=== PATIENT | male | born 1955 | race Caucasian/White ===

== ENCOUNTER 2022-06-28 11:40 | Outpatient (CLI) | payer MEDICARE, SELFPAY ==
[2022-06-28 22:24] LABS: Albumin* 4.4 g/dL (3.3-5.0)
[2022-06-28 22:25] LABS: Chloride* 104 mmol/L (96-114); Potassium* 4.4 mmol/L (3.6-5.1); Sodium* 137 mmol/L (135-149)
[2022-06-28 22:27] LABS: Carbon Dioxide* 27 mmol/L (20-32); Creatinine* 0.8 mg/dL (0.5-1.5)
[2022-06-28 22:28] LABS: Alanine Aminotransferase* 24 U/L (4-50); Alkaline Phosphatase* 70 U/L (40-150); Aspartate Amino Transferase* 38 U/L (12-35); Bilirubin Total* 0.6 mg/dL (0.1-1.5); Blood Urea Nitrogen* 24 mg/dL (7-30); Calcium* 9.8 mg/dL (8.4-10.6); Cholesterol* 182 mg/dL (90-199); Estimated Glomerular Filt Rate 98 ml/min; Glucose* 88 mg/dL (60-115); Total Protein* 7.1 g/dL (6.0-8.3); Triglycerides* 89 mg/dL (40-149)
[2022-06-28 22:29] LABS: HDL Cholesterol* 52 mg/dL (>=40); LDL Cholesterol Calculated 112 mg/dL (<100)
[2022-06-28 22:48] LABS: PSA Screen* 1.05 ng/mL (0.10-4.00)
== END 2022-06-28 11:41 | disposition home or self-care (01) ==
PROVIDERS: Visit Provider Family Medicine
DX: Z00.00 Encounter for general adult medical examination without abnormal findings (principal); F32.A Depression, unspecified; N40.0 Benign prostatic hyperplasia without lower urinary tract symptoms; Z13.1 Encounter for screening for diabetes mellitus; Z13.6 Encounter for screening for cardiovascular disorders; Z12.5 Encounter for screening for malignant neoplasm of prostate
CPT/HCPCS: 80053; 80061; 84153

== ENCOUNTER 2022-09-09 12:52 | Outpatient (CLI) | payer MEDICARE, SELFPAY | END 2022-09-09 12:53 | disposition home or self-care (01) | LOC: LKVREF 12:52 | PROVIDERS: Visit Provider Physician Assistant Medical | DX: Z01.818 Encounter for other preprocedural examination (principal) | CPT/HCPCS: 87081 ==

== ENCOUNTER 2022-09-13 07:40 | Day surgery (SDC) | payer MEDICARE, SELFPAY ==
[2022-09-13] VITALS (18 sets, daily range): BP systolic 103–128; BP diastolic 67–96; PULSE 46–60; RESP 13–16; TEMP 35.6–36.2; O2SAT 93–98; BMI 29.9
[2022-09-13] MEDS: LACTATED RINGERS 1000 ML 1,000 ML 100 ML IV ×2 (08:25→12:43)
[2022-09-13] MEDS: SODIUM CHLORIDE 0.9 % (FLUSH) 10 ML SYRINGE IVF (08:25)
--- NOTE | 2022-09-13 10:21 | SUR.PREOP ---
TIME?OUT:?1021 PT/RN/MDA?VERIFICATION?OF?SURGICAL?SITE,?PROCEDURE,?AND?CONSENT OBTAINED?PRIOR?TO?INVASIVE?PROCEDURE.
[2022-09-13] MEDS: MIDAZOLAM HCL 1 MG/ML inj IVP (10:24)
[2022-09-13] MEDS: fentaNYL 100 MCG/2 ML inj IVP (10:24)
[2022-09-13] MEDS: CLINDAMYCIN 900 MG/50 ML-D5W IVPB (10:53)
--- NOTE | 2022-09-13 11:05 | W.PM.NB ---
Nerve Block Nerve Block Time Seen by Provider: 10:26 Date Seen: 09/13/22 Type of block requested by surgeon for post-operative analgesia: supraclavicular Side: right Time out performed: Yes Verification of patient name: Yes Verification of date of : Yes Site marking: site marked Name of person performing procedure: Favian Continuous monitoring Was continuous monitoring of O2 sat, B/P, cardiac cath technician, recorded every 15 minutes?: Yes Procedure Checklist: sterile prep, needles and gloves Ultrasound guided. Images saved: Yes Medications given in 5ml increments after negative aspiration: Ropivicaine %: 0.5 mL: 20 Needle gauge: 22 Decadron (mg): 10 Precedex (mcg): 25 Patient tolerated procedure well: Yes Block Charges Block Charge (with Pro Fee): Brachial Plexus Use of Ultrasound Machine for Block: Yes- US Guidance/pain block
[2022-09-13] MEDS: EPINEPHrine 1 MG in SODIUM CHLORIDE IRRIG SOLUTION 3,000 ML 3001 MG IRRIGATION ×2 (11:08→11:45)
--- NOTE | 2022-09-13 12:43 | PM.ORPRC ---
Procedure Note Date of procedure: 09/13/22 Procedure: PREOPERATIVE DIAGNOSES: 1. Right shoulder rotator cuff tear. 2. Right shoulder subacromial impingement syndrome. 3. 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 Right carpal tunnel syndrome POSTOPERATIVE DIAGNOSES: 1. Right shoulder rotator cuff tear - subscapularis 2. Right shoulder long head of biceps rupture, remote 3. Right shoulder labral tearing 4. 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 Right shoulder subacromial impingement syndrome. 7. 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 Right carpal tunnel syndrome NAME OF OPERATION: 1. Right shoulder arthroscopic rotator cuff repair (upper border subscapularis) 2. Right shoulder arthroscopic extensive glenohumeral debridement 3. Right shoulder arthroscopic distal clavicle excision 4. Right shoulder arthroscopic subacromial decompression/partial acromioplasty 5. Right open ulnar nerve decompression (cubital tunnel location) 6. Right open carpal tunnel release SURGEON: Gerald Gonsales MD BRANCH OFFICE MANAGER: Korey Herrera PA-C. Of note, a skilled graduate assistant athletic trainer was critical for this case to aide in patient positioning, suture manipulation, arm positioning, instrument positioning, and closure. ANESTHESIA: General plus preoperative supraclavicular block. EBL: Less than 50 mL IMPLANTS: Single 4.75 mm BioComposite SwiveLock suture anchor-Arthrex COMPLICATIONS: None evident INDICATIONS: The patient is a pleasant, 67-year-old male who has experienced right shoulder pain that has been increasing in recent time. This is been the most symptomatic clinically. He has noted weakness with trying to pass a belt around his belt loops or pulling objects into his belly. Also has noted numbness and tingling of his right hand including all digits. An EMG/NCS was obtained which revealed combination of carpal tunnel and cubital tunnel with both median and ulnar nerves affected, respectively. In addition, an MRI was obtained of the right shoulder which revealed/confirmed long head of biceps rupture from remote past but also anterior subscapularis tearing. Given their findings, as well as the weakness and pain, and inadequate response to nonoperative management, recommendation was made for surgery. FINDINGS: Exam under anesthesia revealed stable shoulder with excellent range of motion. The diagnostic arthroscopy revealed grade 3 chondromalacia humeral head anteriorly with some loose chondral flaps. The Subscapularis tendon was torn from its upper border with moderate retraction. The long head of the biceps tendon was torn in a remote fashion with a large stump still remaining. The superior rotator cuff tendon was found to be low-grade partial-thickness tearing articular side. The labrum was degeneratively torn the anterior and superior aspects. No loose bodies were identified within the pouch or subscapularis recess. Regarding the ulnar nerve, this remained reduced following decompression without subluxation around the medial humeral epicondyle. Therefore, no anterior transposition was indicated. Regarding median nerve at the carpal tunnel, the nerve otherwise appeared healthy without appreciable tumors or mass effects within carpal tunnel. PROCEDURE: Following a thorough discussion of risks, benefits, and alternatives, consent was obtained and the right shoulder was marked. The patient was brought to the operating room and placed supine on the operating table. Induction of anesthesia was completed after preoperative supraclavicular block was administered in preop holding. Appropriate time out was performed identifying proper patient, site, and procedure. 2 g IV Ancef was administered within 1 hour of incision preoperatively. The right upper extremity was prepped and draped in the appropriate sterile fashion using ChloraPrep prep. This was after the patient was positioned in the beach chair with their head in neutral alignment and all bony prominences well padded. The shoulder was insufflated with 20mL of normal saline via an 18g spinal needle from a posterior approach. An 11 blade skin incision allowed a blunt trochar to be inserted and diagnostic arthroscopy to be performed with the findings as noted above. An anterior portal was established with an outside in technique. This allowed the probe to be inserted and confirm the diagnostic arthroscopic findings. The shaver was then inserted and allowed debridement of the anterior and superior labrum as well as the biceps stump and the anterior humeral chondral tissue of the loose chondral flaps. We also debrided the lesser tuberosity with a combination of trochlea shaver bur on reverse setting. Following this, the upper border subscapularis was repaired after debriding the lesser tuberosity with the shaver and [place] cautery. Subscapularis was captured in horizontal mattress fashion with a fiber tape suture. The tails were brought to a single anchor in the lesser tuberosity with excellent reapproximation of the subscap tendon and good excursion/tension. Thereafter, the subacromial space was entered. Here, a complete bursectomy and partial acromioplasty/subacromial decompression was performed with a combination of radiofrequency ablator, the shaver, and a 5.5 mm bur. Additionally, distal clavicle excision was performed with the bur. 8 mm of distal clavicle was resected based on the with of our bur. Further inspection of the supraspinatus and infraspinatus rotator cuff was performed. This identified no appreciable bursal sided partial tearing and did not appreciate any high-grade partial tearing throughout. We did appreciate some articular sided partial tearing but probing did not allow the probe to penetrate through the tissue indicating its integrity was still of good quality. Prior to anchor special education bus driver removal, the eyelet sutures were tugged on for each anchor and found that the anchor had excellent stability within the bone. The shoulder was placed through range of motion and found to be stable. The rotator cuff was re-probed and found to be stable. Instruments were removed. Excess fluid was drained, closure performed with 4-0 Monocryl and Steri-Strips. Dressings were applied. At this stage, we turned our attention to the ulnar nerve decompression. A longitudinal incision was made along the medial elbow extending proximal and distal approximately 5 cm in either direction. Sharp incision through the skin and blunt dissection through the subcutaneous tissue allowed protection of crossing neurologic structures. Proximally, blunt dissection continued to the depth of the ulnar nerve itself. The ulnar nerve was released from its surrounding tissues beginning proximally and moving toward the distal extent. This included ligament of [place], medial intermuscular septum, cubital tunnel, FCU fascial sling, etc. The vena comitantes was maintained with the nerve and caution was taken particularly around the motor branches of the ulnar nerve. After releasing the nerve superficially, the elbow was placed through range of motion and found that the nerve remained stable. There was excellent decompression along the nerve course and no subluxation of the nerve with elbow flexion. Therefore, no anterior transposition was indicated. Closure was performed with 2-O Vicryl and 3-0 Monocryl for the subcutaneous subcuticular closure. Finally, attention was turned to the carpal tunnel release. An incision was made in line with the radial border of the ring finger beginning 1 cm distal to the distal wrist crease and progressing for another 2.5cm distal. Caution was taken to stay proximal to [place]'s cardinal line. Sharp incision through the skin, subcutaneous tissue, and palmar fascia was performed. The thenar musculature was bluntly elevated off the transverse carpal ligament. The ligament was directly visualized, and divided sharply with a 15 blade. This was released from its most proximal to the most distal extent. Metzenbaum scissor was also utilized to release the fascia extension proximally. We confirmed complete release of the transverse carpal ligament. Closure was performed with 4-O nylon in interrupted fashion. Soft dressings were applied, and the patient was transferred to the recovery room in stable condition. Of note, prior to closure of the elbow and wrist, the tourniquet was released at 24 minutes. Hemostasis achieved. Sling was applied to the right upper extremity after dressings applied. The patient was woken from anesthesia and transferred the recovery room in stable condition. A skilled graduate assistant athletic trainer was critical for this case to aid in patient positioning, limb positioning, skill to manipulate arthroscopic instruments and camera, suture management, patient safety, and closure. PLAN: 1. Elbow, forearm, wrist and digit range of motion as tolerated. 2. Encouraged ice. 3. Percocet for pain as needed. 4. Sling at all times except for ROM and showering. 5. Follow up with PA visit in 1-2 weeks for wound check. Initiate physical therapy following that visit for passive range of motion. Initiate active assisted range of motion at 4 weeks. May do pendulums now.
[2022-09-13] MEDS: BACITRACIN OINTMENT BULK TUBE 1 APPLIC TOPICAL (13:01)
--- NOTE | 2022-09-13 13:09 | W.ANESCHARGE ---
Anesthesia Charges Start Date/Time Anesthesia Start Date: 09/13/22 Anesthesia Start Time: 10:43 Stop Date/Time Anesthesia Stop Date: 09/13/22 Anesthesia Stop Time: 13:20 Summary Emergency: No
[2022-09-13] MEDS: ACETAMINOPHEN 325 MG TABLET PO (13:17)
--- NOTE | 2022-09-13 13:20 | W.ANESCHARGE ---
Anesthesia Charges Start Date/Time Anesthesia Start Date: 09/13/22 Anesthesia Start Time: 10:43 Stop Date/Time Anesthesia Stop Date: 09/13/22 Anesthesia Stop Time: 13:20 Summary Emergency: No
== END 2022-09-13 15:30 | disposition home or self-care (01) ==
PROVIDERS: Visit Provider Orthopaedic Surgery Sports Medicine
PROC: (CPT 29805; principal; 2022-09-13 09:30)
PROC: (CPT 29827; 2022-09-13 09:30)
PROC: (CPT 64721; 2022-09-13 09:30)
DX: M75.101 Unspecified rotator cuff tear or rupture of right shoulder, not specified as traumatic (principal); M75.41 Impingement syndrome of right shoulder; G56.21 Lesion of ulnar nerve, right upper limb; G56.01 Carpal tunnel syndrome, right upper limb; M94.211 Chondromalacia, right shoulder; M19.011 Primary osteoarthritis, right shoulder; S46.111A Strain of muscle, fascia and tendon of long head of biceps, right arm, initial encounter; S43.431A Superior glenoid labrum lesion of right shoulder, initial encounter
CPT/HCPCS: 29827; 29826; 29823; 29824; 64718; 64721; 01630; 64415; 76942; A9270; C1713; J0171; J0330; J1100; J2250; J2405; J2704; J2795; J3010; J7120; L3670; S0077